=== PATIENT | male | born 1955 | race Two or more races ===

== ENCOUNTER 2019-12-14 12:18 | Inpatient (IN) | payer MEDICAID ==
[~2019-12-14] VITALS: Ht 170.2 cm; Wt 74.1 kg
[2019-12-14] MEDS ORDERED: METO-396 PO (12:23)
[2019-12-14 12:55] LABS: EOSINOPHILS % 0.5 % (0.0-5.0); HEMATOCRIT. 43.3 % (42.0-52.0); HEMOGLOBIN. 14.8 g/dL (14.0-18.0); LYMPHOCYTES % 25.8 % (20.0-50.0); MEAN CORPUSCULAR HEMOGLOBIN 32.7 pg (28.0-32.0); MEAN CORPUSCULAR VOLUME 95.6 fL (80.0-94.0); MEAN PLATELET VOLUME 7.5 fl (7.4-10.4); NEUTROPHILS % 61.7 % (40.0-76.0); PLATELET 251 x1000/uL (130-400); RED BLOOD CELL COUNT 4.53 mill/uL (4.7-6.1); RED CELL DISTRIBUTION WIDTH 14.7 % (11.6-14.6)
[2019-12-14 13:02] LABS: CHLORIDE 102 mEq/L (98-107)
[2019-12-14 13:03] LABS: PROTHROMBIN TIME 10.4 sec (9.6-11.0)
[2019-12-14 13:07] LABS: ETHANOL BLOOD < 10 mg/dL
[2019-12-14 13:09] LABS: CLARITY URINE CLEAR (CLEAR); COLOR URINE YELLOW (YELLOW); KETONES URINE NEGATIVE (NEGATIVE); LEUKOCYTE ESTERASE URINE NEGATIVE (NEGATIVE); NITRITE URINE NEGATIVE (NEGATIVE); OCCULT BLOOD URINE NEGATIVE (NEGATIVE); PH URINE 8.5 (4.5-8.0); PROTEIN URINE 3+ (NEGATIVE); SPECIFIC GRAVITY URINE 1.016 (1.005-1.030); UROBILINOGEN URINE 0.2 E.U./dL (0.2-1.0)
[2019-12-14 13:09] LABS: LDL CHOLESTEROL 239 mg/dL (5-100)
[2019-12-14 13:29] LABS: *AMPHETAMINES SCREEN URINE NEGATIVE (NEGATIVE); *BARBITURATES SCREEN URINE NEGATIVE (NEGATIVE); *BENZODIAZEPINES SCREEN URINE NEGATIVE (NEGATIVE); *COCAINE SCREEN URINE NEGATIVE (NEGATIVE)
[2019-12-14 13:30] LABS: CANNABINOID URINE SCREEN NEGATIVE (NEGATIVE); METHADONE URINE SCREEN NEGATIVE (NEGATIVE); OPIATES URINE SCREEN NEGATIVE (NEGATIVE); PHENCYCLIDINE URINE SCREEN NEGATIVE (NEGATIVE)
[2019-12-14] MEDS ORDERED: ONDANSETRON HCL 4MG/2ML INJ IV PRN (15:15)
[2019-12-14] MEDS ORDERED: IPRATROPIUM/ALBUTEROL 0.5-3(2.5)MG/3ML NEB HHN PRN (15:15)
[2019-12-14 15:26] LABS: PHOSPHORUS 3.2 mg/dL (2.5-4.9)
[2019-12-14] MEDS ORDERED: MVI, ADULT NO.1 10 ML, FOLIC ACID 1 MG, THIAMINE HCL 100 MG in SODIUM CHLORIDE 0.9% 1,0... IV NR ×4 (16:00)
[2019-12-14] MEDS: ENOXAPARIN 40MG/0.4ML SYR SUBCUT SCH (16:41)
[2019-12-14] MEDS: CLONIDINE 0.1MG TABLET PO PRN (16:57)
[2019-12-14] MEDS: HYDRALAZINE 20MG/ML VIAL IV PRN (17:51)
[2019-12-14] MEDS: LORAZEPAM 2MG/ML CPJ IV PRN (21:20)
[2019-12-14 23:33] VITALS: BP 199/103
[2019-12-14 23:37] VITALS: BP 199/103
[2019-12-14 23:50] LABS: CREATINE KINASE 122 IU/L (39-308)
[2019-12-14 23:51] LABS: CREATINE KINASE MB FRACTION < 1.0 ng/mL (0.5-3.6)
[2019-12-15] MEDS: CHLORDIAZEPOXIDE 25MG CAPSULE PO SCH ×4 (00:12→20:55)
[2019-12-15] MEDS: HYDRALAZINE 20MG/ML VIAL IV PRN (00:12)
[2019-12-15 04:00] VITALS: BP 121/72
[2019-12-15 05:58] LABS: CHLORIDE 102 mEq/L (98-107)
[2019-12-15 06:06] LABS: LDL CHOLESTEROL 196 mg/dL (5-100)
[2019-12-15 06:07] LABS: CREATINE KINASE 113 IU/L (39-308); HDL CHOLESTEROL 59 mg/dL (40-59)
[2019-12-15 06:12] LABS: CREATINE KINASE MB FRACTION < 1.0 ng/mL (0.5-3.6)
[2019-12-15 06:33] LABS: HEMATOCRIT. 40.7 % (42.0-52.0); HEMOGLOBIN. 13.9 g/dL (14.0-18.0); MEAN CORPUSCULAR HEMOGLOBIN 32.3 pg (28.0-32.0); MEAN CORPUSCULAR VOLUME 94.3 fL (80.0-94.0); MEAN PLATELET VOLUME 7.6 fl (7.4-10.4); PLATELET 225 x1000/uL (130-400); RED BLOOD CELL COUNT 4.31 mill/uL (4.7-6.1); RED CELL DISTRIBUTION WIDTH 14.3 % (11.6-14.6)
[2019-12-15 08:00] VITALS: BP 129/88
[2019-12-15 12:00] VITALS: BP 137/82
[2019-12-15] MEDS: DEXAMETHASONE 4MG/ML 1ML VIAL IV SCH ×3 (13:39→23:44)
[2019-12-15] MEDS: ACETAMINOPHEN 325MG TABLET PO PRN (13:40)
[2019-12-15] MEDS: METOPROLOL TARTRATE 25MG TABLET PO SCH ×2 (15:11→20:55)
[2019-12-15 16:00] VITALS: BP 141/84
[2019-12-15 16:31] LABS: NUCLEATED RED BLOOD CELLS 1 /100 WBC
[2019-12-15 16:32] LABS: PLATELET ESTIMATE NORMAL
[2019-12-15] MEDS: ENOXAPARIN 40MG/0.4ML SYR SUBCUT SCH (17:47)
[2019-12-15 19:44] VITALS: BP 133/71
[2019-12-15] MEDS: LORAZEPAM 2MG/ML CPJ IV PRN (22:04)
[2019-12-16] VITALS (7 sets, daily range): BP systolic 97–146; BP diastolic 30–87
[2019-12-16] MEDS: DEXAMETHASONE 4MG/ML 1ML VIAL IV SCH ×2 (05:33→11:47)
[2019-12-16] MEDS: CHLORDIAZEPOXIDE 25MG CAPSULE PO SCH ×3 (05:34→21:21)
[2019-12-16] MEDS: METOPROLOL TARTRATE 25MG TABLET PO SCH ×3 (08:44→21:21)
[2019-12-16] MEDS: THIAMINE HCL 100MG TABLET PO SCH (14:08)
[2019-12-16] MEDS: FOLIC ACID 1MG TABLET PO SCH (14:08)
[2019-12-16] MEDS: MULTIVITAMINS,THER W-MINERALS TABLET PO SCH (14:09)
[2019-12-16] MEDS ORDERED: POTASSIUM CHLORIDE 20MEQ/PACKET PO NR (15:00)
[2019-12-16] MEDS ORDERED: POTASSIUM CHLORIDE 20MEQ TABLET SR PO NR (18:00)
[2019-12-16] MEDS: LORAZEPAM 2MG/ML CPJ IV PRN (20:44)
[2019-12-16] MEDS: ATORVASTATIN CALCIUM 40MG TABLET PO SCH (21:21)
[2019-12-16] MEDS: ACETAMINOPHEN 325MG TABLET PO PRN (21:21)
[2019-12-17] VITALS (39 sets, daily range): BP systolic 88–167; BP diastolic 59–99
[2019-12-17] MEDS ORDERED: POTASSIUM CHLORIDE INJ 40 MEQ in DEXT 5% WATER 250 ML IV SCH (04:00)
[2019-12-17] MEDS: CHLORDIAZEPOXIDE 25MG CAPSULE PO SCH ×3 (05:13→21:02)
[2019-12-17] MEDS ORDERED: BACITRACIN 50,000 UNITS/VIAL ONE (06:38)
[2019-12-17] MEDS ORDERED: LIDOCAINE HCL/EPINEPHRINE 1%-EPI 1:100,000 20 ML VIAL ONE (06:38)
[2019-12-17] MEDS ORDERED: THROMBIN (BOVINE) 5000 UNITS/VIAL TOP ONE (06:38)
[2019-12-17 07:06] LABS: CHLORIDE 103 mEq/L (98-107)
[2019-12-17 07:07] LABS: BASOPHILS % 0.2 % (0.0-2.0); HEMATOCRIT. 44.4 % (42.0-52.0); MEAN CORPUSCULAR HEMOGLOBIN 32.3 pg (28.0-32.0); MEAN CORPUSCULAR VOLUME 95.7 fL (80.0-94.0); MEAN PLATELET VOLUME 7.9 fl (7.4-10.4); NEUTROPHILS % 82.8 % (40.0-76.0); PLATELET 243 x1000/uL (130-400); RED BLOOD CELL COUNT 4.63 mill/uL (4.7-6.1); RED CELL DISTRIBUTION WIDTH 14.5 % (11.6-14.6)
[2019-12-17] MEDS ORDERED: FENTANYL CITRATE/PF 50MCG/ML 2ML VIAL ONE (07:10)
[2019-12-17] MEDS ORDERED: ROCURONIUM BROMIDE 10MG/ML VIAL 5ML IV ONE (07:11)
[2019-12-17] MEDS ORDERED: GLYCOPYRROLATE 0.2 MG/ML 2ML VIAL ONE (07:11)
[2019-12-17] MEDS ORDERED: PROPOFOL 200MG/20ML VIAL IV ONE (07:11)
[2019-12-17] MEDS ORDERED: NEOSTIGMINE METHYLSULFATE 1MG/ML 10 ML VIAL ONE (07:11)
[2019-12-17] MEDS ORDERED: MIDAZOLAM HCL 2 MG/2 ML VIAL ONE (07:11)
[2019-12-17] MEDS: DEXT 5%/LACTATED RINGERS 1,000 ML IV SCH ×3 (07:15→20:07)
[2019-12-17] MEDS ORDERED: NICARDIPINE 100 MG in SODIUM CHLORIDE 0.9% 60 ML IV PRN (07:15)
[2019-12-17] MEDS ORDERED: ONDANSETRON HCL 4MG/2ML INJ ONE (07:32)
[2019-12-17] MEDS ORDERED: DEXAMETHASONE 4MG/ML 1ML VIAL ONE (07:32)
[2019-12-17] MEDS ORDERED: HYDROMORPHONE HCL/PF 2MG/ML (OR) ONE (07:34)
[2019-12-17] MEDS: FOLIC ACID 1MG TABLET PO SCH (08:42)
[2019-12-17] MEDS: MULTIVITAMINS,THER W-MINERALS TABLET PO SCH (08:42)
[2019-12-17] MEDS: THIAMINE HCL 100MG TABLET PO SCH (08:42)
[2019-12-17] MEDS: METOPROLOL TARTRATE 25MG TABLET PO SCH ×2 (08:42→20:08)
[2019-12-17] MEDS: MORPHINE SULFATE 4 MG/ML CPJ (NOT FOR IM USE) IV PRN ×3 (10:06→23:27)
[2019-12-17] MEDS: DEXAMETHASONE 4MG/ML 1ML VIAL IV SCH ×3 (12:00→23:16)
[2019-12-17 12:18] LABS: BG BASE EXCESS -4.3 mmol/L (-2.0-2.0); BG DEOXYHEMOGLOBIN 0.4 % (0.0-5.0); BG FRACTION INSPIRED OXYGEN 100; BG HCO3 ACT 21.6 mmol/L (22.0-26.0); BG METHEMOGLOBIN 0.5 % (0.0-1.5); BG OXYGEN SATURATION 99.6 % (92.0-98.5); BG OXYHEMOGLOBIN 99.1 % (94.0-97.0); BG PCO2 42.9 mmHg (35.0-45.0); BG PO2 496.4 mmHg (75.0-100.0); BG PRESSURE SUPPORT 8; BG SAMPLE SITE RIGHT RADIAL; BG TOTAL HEMOGLOBIN 13.7 g/dL (12.0-18.0); BG VENT MODE VENT - CPAP
[2019-12-17] MEDS ORDERED: CEFAZOLIN SODIUM 1000MG/VIAL IV SCH (14:00)
[2019-12-17] MEDS: CEFAZOLIN 1000MG PREMIX 50 ML IV SCH ×2 (16:45→23:16)
[2019-12-17] MEDS: ATORVASTATIN CALCIUM 40MG TABLET PO SCH (20:08)
[2019-12-18] VITALS (30 sets, daily range): BP systolic 92–151; BP diastolic 59–91
[2019-12-18] MEDS: MORPHINE SULFATE 4 MG/ML CPJ (NOT FOR IM USE) IV PRN ×5 (04:55→22:37)
[2019-12-18 05:31] LABS: HEMATOCRIT. 38.5 % (42.0-52.0); MEAN CORPUSCULAR HEMOGLOBIN 32.5 pg (28.0-32.0); MEAN PLATELET VOLUME 8.3 fl (7.4-10.4); PLATELET 199 x1000/uL (130-400); RED BLOOD CELL COUNT 4.01 mill/uL (4.7-6.1); RED CELL DISTRIBUTION WIDTH 14.1 % (11.6-14.6)
[2019-12-18 05:35] LABS: CHLORIDE 107 mEq/L (98-107)
[2019-12-18] MEDS: CHLORDIAZEPOXIDE 25MG CAPSULE PO SCH ×3 (05:36→20:04)
[2019-12-18] MEDS: CEFAZOLIN 1000MG PREMIX 50 ML IV SCH (06:26)
[2019-12-18] MEDS: DEXAMETHASONE 4MG/ML 1ML VIAL IV SCH ×2 (06:26→12:35)
[2019-12-18 08:27] LABS: PLATELET ESTIMATE NORMAL
[2019-12-18] MEDS: DEXT 5%/LACTATED RINGERS 1,000 ML IV SCH (08:39)
[2019-12-18] MEDS: HYDRALAZINE 20MG/ML VIAL IV PRN (10:22)
[2019-12-18] MEDS: THIAMINE HCL 100MG TABLET PO SCH (10:26)
[2019-12-18] MEDS: FOLIC ACID 1MG TABLET PO SCH (10:26)
[2019-12-18] MEDS: MULTIVITAMINS,THER W-MINERALS TABLET PO SCH (10:27)
[2019-12-18] MEDS: METOPROLOL TARTRATE 25MG TABLET PO SCH ×2 (10:27→20:04)
[2019-12-18] MEDS ORDERED: HYDROCODONE/ACETAMINOPHEN 5/325MG TABLET PO PRN (11:15)
[2019-12-18] MEDS: ATORVASTATIN CALCIUM 40MG TABLET PO SCH (20:03)
[2019-12-18] MEDS: LORAZEPAM 2MG/ML CPJ IV PRN (20:03)
[2019-12-19] VITALS (8 sets, daily range): BP systolic 116–170; BP diastolic 71–94
[2019-12-19] MEDS: MORPHINE SULFATE 4 MG/ML CPJ (NOT FOR IM USE) IV PRN ×2 (03:30→12:17)
[2019-12-19] MEDS: CHLORDIAZEPOXIDE 25MG CAPSULE PO SCH ×2 (05:26→13:22)
[2019-12-19] MEDS: LORAZEPAM 2MG/ML CPJ IV PRN (06:08)
[2019-12-19] MEDS: FOLIC ACID 1MG TABLET PO SCH (09:22)
[2019-12-19] MEDS: THIAMINE HCL 100MG TABLET PO SCH (09:22)
[2019-12-19] MEDS: MULTIVITAMINS,THER W-MINERALS TABLET PO SCH (09:23)
[2019-12-19] MEDS: METOPROLOL TARTRATE 25MG TABLET PO SCH (09:23)
[2019-12-19] MEDS ORDERED: EZETIMIBE 10MG TABLET PO SCH (12:15)
[2019-12-19] MEDS ORDERED: LISINOPRIL 5MG TABLET PO SCH (12:15)
[2019-12-19 13:03] LABS: BASOPHILS % 0.3 % (0.0-2.0); EOSINOPHILS % 0.4 % (0.0-5.0); HEMATOCRIT. 44.9 % (42.0-52.0); HEMOGLOBIN. 14.8 g/dL (14.0-18.0); LYMPHOCYTES % 19.2 % (20.0-50.0); MEAN CORPUSCULAR HEMOGLOBIN 32.3 pg (28.0-32.0); MEAN CORPUSCULAR VOLUME 97.8 fL (80.0-94.0); MEAN PLATELET VOLUME 9.1 fl (7.4-10.4); MONOCYTES % 8.4 % (2.0-8.0); NEUTROPHILS % 71.7 % (40.0-76.0); PLATELET 207 x1000/uL (130-400); RED BLOOD CELL COUNT 4.59 mill/uL (4.7-6.1); RED CELL DISTRIBUTION WIDTH 14.4 % (11.6-14.6)
[2019-12-19 14:07] LABS: CHLORIDE 103 mEq/L (98-107)
[2019-12-19] MEDS ORDERED: POLYETHYLENE GLYCOL 3350 (17GM) 1 DOSE PACK PO SCH (14:15)
[2019-12-19 14:18] LABS: T4 FREE 1.38 ng/dL (0.76-1.46)
[2019-12-19] MEDS ORDERED: METO-539 PO (14:25)
[2019-12-19] MEDS ORDERED: THIA100T72 PO (14:25)
[2019-12-19] MEDS ORDERED: LIP40 PO (14:25)
[2019-12-19] MEDS ORDERED: L25 PO (14:25)
[2019-12-19] MEDS ORDERED: LISI-186 PO (14:25)
[2019-12-19] MEDS ORDERED: FOLI-43 PO (14:25)
[2019-12-19] MEDS ORDERED: MULT-230 MT (14:25)
[2019-12-19] MEDS ORDERED: EZET10TA13 PO (14:25)
[2019-12-19] MEDS ORDERED: HYDR-4001 MT (14:39)
[2019-12-19] MEDS: CLONIDINE 0.1MG TABLET PO PRN (16:32)
[2019-12-19] MEDS ORDERED: METOPROLOL TARTRATE 50MG TABLET PO SCH (21:00)
[2019-12-19] MEDS ORDERED: ATORVASTATIN CALCIUM 40MG TABLET PO SCH (21:00)
[2019-12-22] MEDS ORDERED: HYDR-4001 MT (14:19)
== END 2019-12-19 17:15 | disposition home or self-care (01) | DRG 321 ==
LOC: ER 12:18 → EDBEDREQSVC 15:03 → EDBEDREQ 15:03 → EDBEDREQTM 15:03 → 6WST 21:53 → MICUNO 12-17 09:04 → 6WST 12-19 03:22
PROVIDERS: ADMIT Internal Medicine; ATTEND Internal Medicine
PROC: 0RG20A0 Fusion of 2 or more Cervical Vertebral Joints with Interbody Fusion Device, Anterior Approach, Anterior Column, Open Approach (ICD-10-PCS; principal; 2019-12-17)
PROC: 0RB30ZZ Excision of Cervical Vertebral Disc, Open Approach (ICD-10-PCS; 2019-12-17)
PROC: 4A11X4G Monitoring of Peripheral Nervous Electrical Activity, Intraoperative, External Approach (ICD-10-PCS; 2019-12-17)
DX: M48.02 Spinal stenosis, cervical region (principal); G82.50 Quadriplegia, unspecified; M47.12 Other spondylosis with myelopathy, cervical region; I25.110 Atherosclerotic heart disease of native coronary artery with unstable angina pectoris; I69.351 Hemiplegia and hemiparesis following cerebral infarction affecting right dominant side; M47.812 Spondylosis without myelopathy or radiculopathy, cervical region; E78.5 Hyperlipidemia, unspecified; E87.6 Hypokalemia; M25.78 Osteophyte, vertebrae; I73.9 Peripheral vascular disease, unspecified; J44.9 Chronic obstructive pulmonary disease, unspecified; M54.12 Radiculopathy, cervical region; R29.810 Facial weakness; Z60.2 Problems related to living alone; E03.9 Hypothyroidism, unspecified; Z95.1 Presence of aortocoronary bypass graft; Z79.899 Other long term (current) drug therapy; Z11.59 Encounter for screening for other viral diseases
CPT/HCPCS: 36415; 36600; 70551; 71045; 72040; 72141; 76000; 80048; 80053; 80061; 80305; 80320; 81003; 82375; 82550; 82553; 82805; 82962; 83721; 83735; 84100; 84439; 84443; 84481; 84484; 85025; 88304; 88311; 93005; 93306; 93880; 93970; 95863; 95925; 95926; 95928; 95929; 95940; 97162; 97166; 99285; C1713; J0360; J0690; J1100; J1170; J1650; J2060; J2250; J2270; J2405; J2704; J2710; J3010; J3411; J3480; J3490; J7030; J7060; J7121; G0480; U0003-CS

== ENCOUNTER 2019-12-27 22:32 | Emergency (ER) | payer MEDICAID ==
[~2019-12-27] VITALS: Ht 170.2 cm; Wt 75.0 kg
[~2019-12-27 22:32] MED LIST: EZET10TA13 PO; FOLI-43 PO; HYDR-4001 MT; L25 PO; LIP40 PO; LISI-186 PO; METO-539 PO; MULT-230 MT; THIA100T72 PO
[2019-12-27 23:21] LABS: BASOPHILS % 1.2 % (0.0-2.0); EOSINOPHILS % 2.4 % (0.0-5.0); HEMATOCRIT. 43.5 % (42.0-52.0); HEMOGLOBIN. 14.3 g/dL (14.0-18.0); MEAN CORPUSCULAR HEMOGLOBIN 32.5 pg (28.0-32.0); MEAN CORPUSCULAR VOLUME 98.5 fL (80.0-94.0); MEAN PLATELET VOLUME 7.4 fl (7.4-10.4); MONOCYTES % 7.7 % (2.0-8.0); NEUTROPHILS % 65.7 % (40.0-76.0); PLATELET 316 x1000/uL (130-400); RED BLOOD CELL COUNT 4.41 mill/uL (4.7-6.1); RED CELL DISTRIBUTION WIDTH 15.1 % (11.6-14.6)
[2019-12-27 23:24] LABS: CHLORIDE 114 mEq/L (98-107)
[2019-12-27 23:48] LABS: ETHANOL BLOOD 323 mg/dL
[2019-12-27] MEDS ORDERED: SODIUM CHLORIDE 0.9% 1,000 ML IV ONE (23:57)
[2019-12-28 02:19] LABS: *AMPHETAMINES SCREEN URINE NEGATIVE (NEGATIVE); *BARBITURATES SCREEN URINE NEGATIVE (NEGATIVE); *BENZODIAZEPINES SCREEN URINE PRESUMTIVE POSITIVE (NEGATIVE); *COCAINE SCREEN URINE NEGATIVE (NEGATIVE); METHADONE URINE SCREEN NEGATIVE (NEGATIVE)
[2019-12-28 02:20] LABS: CANNABINOID URINE SCREEN NEGATIVE (NEGATIVE); OPIATES URINE SCREEN NEGATIVE (NEGATIVE); PHENCYCLIDINE URINE SCREEN NEGATIVE (NEGATIVE)
[2019-12-28 02:56] LABS: CLARITY URINE CLEAR (CLEAR); COLOR URINE YELLOW (YELLOW); KETONES URINE NEGATIVE (NEGATIVE); LEUKOCYTE ESTERASE URINE NEGATIVE (NEGATIVE); NITRITE URINE NEGATIVE (NEGATIVE); OCCULT BLOOD URINE NEGATIVE (NEGATIVE); PROTEIN URINE NEGATIVE (NEGATIVE); SPECIFIC GRAVITY URINE 1.011 (1.005-1.030)
[2019-12-28 06:04] VITALS: BP 129/91
== END 2019-12-28 06:05 | disposition home or self-care (01) ==
LOC: ER 22:32
DX: F10.129 Alcohol abuse with intoxication, unspecified (principal); Y90.8 Blood alcohol level of 240 mg/100 ml or more; I11.0 Hypertensive heart disease with heart failure; I50.9 Heart failure, unspecified; Z86.73 Personal history of transient ischemic attack (TIA), and cerebral infarction without residual deficits; Z79.899 Other long term (current) drug therapy
CPT/HCPCS: 36415; 80053; 80305; 80307; 80320; 80329; 81003; 85025; 99285; J7030; G0480